=== PATIENT | male | born 1955 | race Caucasian/White ===

== ENCOUNTER 2018-02-01 11:17 | Emergency (ER) | payer OTHER ==
[2018-02-01 11:42] VITALS: BP 136/84
--- NOTE | 2018-02-01 12:32 | UC ---
Shoulder Pain HPI - HPI Summary HPI Summary: right shoulder pain x 2 hrs sudden onset , fell on ice this morning , landed on his right arm / shoulder' sever pain and weakness of the right shoulder - History of Current Complaint Chief Complaint: UCUpperExtremity Stated Complaint: SP FALL-RT SHOULDER PAIN Time Seen by Provider: 02/01/18 11:43 Hx Obtained From: Patient Onset/Duration: Sudden Onset, Lasting Hours - 2, Still Present Severity Initially: Severe Severity Currently: Severe Pain Intensity: 7 - Allergies/Home Medications Allergies/Adverse Reactions: Allergies Allergy/AdvReac Type Severity Reaction Status Date / Time Sulfa (Sulfonamide Allergy Rash Verified 02/01/18 11:37 Antibiotics) Home Medications: Home Medications Pantoprazole TAB (NF) [Protonix TAB (NF)] 20 mg PO DAILY 02/01/18 [History Confirmed 02/01/18] amLODIPine TAB* [Norvasc 5 mg TAB*] 10 mg PO DAILY 02/01/18 [History Confirmed 02/01/18] PMH/Surg Hx/FS Hx/Imm Hx - Additional Past Medical History Additional PMH: sleep apnea Cardiovascular History: Hypertension - Surgical History Surgical History: Yes Surgery Procedure, Year, and Place: tracheotomy. gallbladder - Family History Known Family History: Positive: Hypertension - Social History Alcohol Use: Rare Substance Use Type: None Smoking Status (MU): Never Smoked Tobacco Review of Systems All Other Systems Reviewed And Are Negative: Yes Constitutional: Positive: Negative Skin: Positive: Negative Eyes: Positive: Negative ENT: Positive: Negative Respiratory: Positive: Negative Cardiovascular: Positive: Negative Is Patient Immunocompromised?: No Physical Exam Triage Information Reviewed: Yes Completion Of Physical Exam Limited Due To: Extremis Appearance: Well-Appearing, No Pain Distress, Well-Nourished Vital Signs: Initial Vital Signs Temp 98 F 02/01/18 11:36 Pulse 73 02/01/18 11:36 Resp 18 02/01/18 11:36 BP 136/84 02/01/18 11:36 Pulse Ox 98 02/01/18 11:36 Eye Exam: Normal Eyes: Positive: Conjunctiva Clear ENT: Positive: Normal ENT inspection, Hearing grossly normal, Pharynx normal, Pharyngeal erythema Neck: Positive: Supple, Nontender, No Lymphadenopathy Respiratory: Positive: Chest non-tender, Lungs clear, Normal breath sounds, No respiratory distress Cardiovascular: Positive: RRR, No Murmur, Pulses Normal, Brisk Capillary Refill Musculoskeletal: Positive: Other: - right shoulder : no swelling, no bruising, + diffuse tenerness, limited rom on flexion and extension , limited strength Diagnostics - Laboratory Diagnostic Studies Completed/Ordered: xray right shoulder : IMPRESSION: COMMINUTED FRACTURE OF THE PROXIMAL RIGHT HUMERUS Shoulder Course/Dx - Course Course Of Treatment: fracture right proximal arm - Differential Dx/Diagnosis Provider Diagnosis: Fracture of right upper extremity Discharge - Sign-Out/Discharge Documenting (check all that apply): Patient Departure All imaging exams completed and their final reports reviewed: Yes - Discharge Plan Condition: Stable Disposition: HOME Prescriptions: Ibuprofen TAB* [Motrin TAB* 800 MG] 800 mg PO Q8H #21 tab Patient Education Materials: Arm Fracture in Adults (ED) Referrals: No Primary Care Phys,NOPCP [Primary Care Provider] - Additional Instructions: follow up with your orthopedics elliot - Billing Disposition and Condition Condition: STABLE Disposition: Home
== END 2018-02-01 12:30 | disposition home or self-care (01) ==
LOC: UCCORT 11:17
DX: S42.251A Displaced fracture of greater tuberosity of right humerus, initial encounter for closed fracture (principal); W00.0XXA Fall on same level due to ice and snow, initial encounter; Y92.9 Unspecified place or not applicable; Z88.2 Allergy status to sulfonamides
CPT/HCPCS: 99203; G0463